=== PATIENT | male | born 1950 | race Caucasian/White ===

== ENCOUNTER 2023-07-12 09:57 | Outpatient (CLI) | payer MEDICARE | END 2023-07-12 09:58 | disposition home or self-care (01) | LOC: CSHCT 09:57 | PROVIDERS: ATTEND Internal Medicine | DX: R05.3 Chronic cough (principal); I89.8 Other specified noninfective disorders of lymphatic vessels and lymph nodes; J44.9 Chronic obstructive pulmonary disease, unspecified | CPT/HCPCS: 71250; 94060; 94664; 94726; 94729; 94760 ==